=== PATIENT | female | born 1980 | race Caucasian/White ===

== ENCOUNTER 2018-08-31 06:49 | Emergency (ER) | payer MEDICAID, OTHER ==
[~2018-08-31] VITALS: Ht 157.5 cm; Wt 59.0 kg
[2018-08-31 07:33] LABS: Basophils # (auto) 0.1 uL; Basophils % (auto) 1.4 % (0.0-2.0); Eosinophils # (auto) 0.6 uL; Hemoglobin 10.7 g/dL (12.2-16.2); Lymphocytes # (auto) 1.3 uL; Mean Corpuscular Hemoglobin 24.4 pg (28.0-32.0); Monocytes # (auto) 0.6 uL; White Blood Cell 6.2 10^3/uL (4.4-10.8)
[2018-08-31 07:35] LABS: Hematocrit 34.2 % (36.0-46.0); Lymphocytes % (auto) 21.7 % (10.0-50.0); Mean Corpuscular Hgb Conc. 31.3 g/dL (32.0-36.0); Mean Corpuscular Volume 77.8 fL (80.0-100.0); Monocytes % (auto) 10.1 % (0.0-12.0); Neutrophils # (auto) 3.5 uL; Neutrophils % (auto) 56.8 % (37.0-80.0); Nucleated Red Blood Cells % 0.1 %; Platelet Count (auto) 359 10^3/uL (140-450); Red Cell Distribution Width 17.4 % (11.8-14.3)
[2018-08-31 07:46] LABS: Alanine Aminotransferase 58 U/L (13-56); Albumin 3.2 g/dL (3.4-5.0); Anion Gap 6 (5-15); Aspartate Aminotransferase 78 U/L (15-37); BUN/Creatinine Ratio 23.9; Blood Alcohol < 3.0 mg/dL (0-5); Blood Urea Nitrogen 16 mg/dL (7-18); Carbon Dioxide 27 mmol/L (21-32); Chloride 107 mmol/L (98-107); GFR African American 125 mL/min; GFR Non-African American 104 mL/min; Glucose 97 mg/dL (74-106); Potassium 3.9 mmol/L (3.5-5.1); Sodium 140 mmol/L (136-145)
[2018-08-31 07:48] LABS: INR 0.94 (0.9-1.15); Partial Thromboplastin Time 25.9 sec (23.64-32.05); Salicylate < 1.7 mg/dL (2.8-20.0)
[2018-08-31 07:49] LABS: Alkaline Phosphatase 98 U/L (45-117); Bilirubin, Total 0.2 mg/dL (0.2-1.0); Total Protein 7.1 g/dL (6.4-8.2)
[2018-08-31 07:57] LABS: Acetaminophen < 2.0 ug/mL (10-30)
[2018-08-31 09:16] LABS: Alcohol, Urine < 3.0 mg/dL (0-5); Amphetamine Screen, Urine POSITIVE (NEGATIVE); Barbiturate Scree,Urine NEGATIVE (NEGATIVE); Benzodiazephine Screen, Urine NEGATIVE (NEGATIVE); Cannabinoid Screen, Urine NEGATIVE (NEGATIVE); Cocaine Screen, Urine NEGATIVE (NEGATIVE); Opiate Scree,Urine NEGATIVE (NEGATIVE); Phencyclidine Screen, Urine NEGATIVE (NEGATIVE); Urine Bacteria NONE SEEN /hpf (None Seen); Urine Blood Negative /uL (Negative); Urine Hyaline Cast FEW /lpf (0 - 2); Urine Mucus FEW (None Seen); Urine Specific Gravity 1.029 (1.001-1.035); Urine WBC 9 /hpf (0 - 5)
[2018-08-31] MEDS ORDERED: OLANZapine 5 MG TAB PO ONE (17:00)
[2018-09-01] MEDS: OLANZapine 5 MG TAB PO SCH (14:46)
[2018-09-02] MEDS: OLANZapine 5 MG TAB PO SCH (10:09)
[2018-09-02 17:13] VITALS: BP 128/64
== END 2018-09-02 17:24 | disposition short-term general hospital (02) ==
LOC: EDBD 06:49 → ER 06:49
DX: F15.10 Other stimulant abuse, uncomplicated (principal); N93.9 Abnormal uterine and vaginal bleeding, unspecified; R41.0 Disorientation, unspecified; F17.210 Nicotine dependence, cigarettes, uncomplicated; F12.10 Cannabis abuse, uncomplicated; Z59.0 Homelessness
CPT/HCPCS: 36415; 80053; 80307; 80320; 80329; 81001; 84702; 85025; 85610; 85730

== ENCOUNTER 2024-04-01 21:23 | Emergency (ER) | payer OTHER ==
[~2024-04-01] VITALS: Ht 157.5 cm; Wt 68.2 kg
--- NOTE | 2024-04-01 21:43 | ED.PDOC ---
History of Present Illness HPI Comments 33 y/o F is BIBA for c/o alcohol intoxication, today. Per EMS report, patient was found by bystanders outside of a [facility] establishment and reported to have had a seizure, this evening. On scene, patient was noted to have been surrounded by multiple empty alcohol bottles and was arousable but intoxicated to answer any questions. All vitals were commented to have been within normal limits and stable on scene and en route. Further history cannot be obtained at this time, due to patient's current intoxicated state and absence of family/caretakers during initial evaluation. Time Seen by MD: 21:40 Reviewed Notes: Nurses Notes, Field Cane Scaler Helper Notes, Medications, Allergies Allergies: Coded Allergies: UNOBTAINABLE (Unverified , 04/01/24) Information Source: Emergency Med Personnel Mode of Arrival: EMS Severity: Moderate Timing: Hours Duration: Since onset Prehospital treatment: 12 Lead EKG, [employer] [employer] Past Medical History PAST MEDICAL HISTORY: Unknown, Unobtainable Surgical History: Unknown, Unobtainable [employer] History: Unknown, Unobtainable Family History Family History: Unknown Social History Smoker: Unknown, Unobtainable Alcohol: Heavy Drugs: Unknown, Unobtainable Lives In: Unknown, Unobtainable All Other Systems: Reviewed and Negative (negative unless otherwise stated in HPI) Physical Exam General Appearance: No Apparent Distress, Normal, Other (appears intoxicated and unkept) HEENT: Normal ENT Inspection, Pharynx Normal, TMs Normal Neck: Full Range of Motion, Non-Tender, Normal, Normal Inspection Respiratory: Chest Non-Tender, Lungs Clear, No Accessory Muscle Use, No Respiratory Distress, Normal Breath Sounds Cardiovascular: No Edema, No JVD, No Murmur, No Gallop, Normal Peripheral Pulses, Regular Rate/Rhythm Breast Exam: Deferred Gastrointestinal: No Organomegaly, Non Tender, No Pulsatile Mass, Normal Bowel Sounds, Soft Genitalia: Deferred Pelvic: Deferred Rectal: Deferred Extremities: No calf tenderness, Normal capillary refill, Normal inspection, Normal range of motion, Non-tender, No pedal edema Musculoskeletal : Apperance: Normal Neurologic: Alert, fringe maker II-XII nml as Tested, No Motor Deficits, Normal Affect, Normal Mood, No Sensory Deficits Cerebellar Function: Normal Reflexes: Normal Skin: Dry, Normal Color, Warm Lymphatic: No Adenopathy Was a procedure done? Was a procedure done?: No Differential Dx Considerations may include: alcohol intoxication, substance abuse, encephalopathy, electrolyte imbalance X-Ray, Labs, Meds, VS Vital Signs Date Time Temp Pulse Resp B/P (MAP) Pulse Ox O2 Delivery O2 Flow Rate FiO2 04/01/24 21:45 101 15 133/73 (93) 98 Lab Test 04/01/24 21:53 Range/Units White Blood Count 10.5 4.4-10.8 10^3/uL Red Blood Count 4.12 4.0-5.20 10^6/uL Hemoglobin 12.1 L 12.2-16.2 g/dL Hematocrit 36.9 36.0-46.0 % Mean Corpuscular Volume 89.7 80.0-100.0 fL Mean Corpuscular Hemoglobin 29.3 28.0-32.0 pg Mean Corpuscular Hemoglobin Concent 32.7 32.0-36.0 g/dL Red Cell Distribution Width 15.3 H 11.8-14.3 % Platelet Count 249 140-450 10^3/uL Mean Platelet Volume 7.4 6.9-10.8 fL Neutrophils (%) (Auto) 58.0 37.0-80.0 % Lymphocytes (%) (Auto) 30.7 10.0-50.0 % Monocytes (%) (Auto) 9.7 0.0-12.0 % Eosinophils (%) (Auto) 1.2 0.0-7.0 % Basophils (%) (Auto) 0.4 0.0-2.0 % Neutrophils # (Auto) 6.1 1.6-8.6 10 ^3/uL Lymphocytes # (Auto) 3.2 0.4-5.4 10 ^3/uL Monocytes # (Auto) 1.0 0-1.3 10 ^3/uL Eosinophils # (Auto) 0.1 0-0.8 10 ^3/uL Basophils # (Auto) 0 0-0.2 10 ^3/uL Nucleated Red Blood Cells 0.0 % Sodium Level 144 136-145 mmol/L Potassium Level 3.3 L 3.5-5.1 mmol/L Chloride Level 106 98-107 mmol/L Carbon Dioxide Level 25 20-31 mmol/L Anion Gap 13 5-15 Blood Urea Nitrogen 7 L 9-23 mg/dL Creatinine 0.51 L 0.550-1.02 mg/dL Glomerular Filtration Rate Calc 117 >90 mL/min BUN/Creatinine Ratio 13.7 10.0-20.0 Serum Glucose 87 74-106 mg/dL Calcium Level 9.1 8.7-10.4 mg/dL Total Bilirubin 0.2 0.2-1.0 mg/dL Aspartate Amino Transferase (AST) 47 H 13-40 U/L Alanine Aminotransferase (ALT) 19 7-40 U/L Alkaline Phosphatase 140 H 46-116 U/L Total Protein 7.7 5.7-8.2 g/dL Albumin 4.4 3.2-4.8 g/dL Plasma/Serum Blood Alcohol 559.8 *H <10 mg/dL Time of 1ST Reevaluation: 22:10 Reevaluation 1ST: Unchanged Time of 2ND Reevaluation: 06:02 Reevaluation 2ND: Improved Patient Education/Counseling: Diagnosis, Treatment, Other (patient is intoxicated ) Family Education/Counseling: No Family Present Departure 1 Departure Time of Disposition: 06:01 Impression: Primary Impression: Alcohol intoxication Additional Impression: Alcoholism Disposition: 01 HOME / SELF CARE / HOMELESS Condition: Stable Discharged With: Self Comments Now improving, ambulatory with steady gait, GCS 15 Critical Care Note Critical Care Time?: No Stability Stability form required: No Heart Score Heart Score: Heart Score Response (Comments) Value History N/A 0 EKG N/A 0 Age N/A 0 Risk Factors N/A 0 Troponin N/A 0 Total 0 I personally scribed for DOT DIAZ MD ([email or web address]) on 04/01/24 at 21:43. Electronically submitted by Zurdo Hawkins ([email or web address]). I personally scribed for DOT DIAZ MD ([email or web address]) on 04/01/24 at 21:45. Electronically submitted by Zurdo Hawkins ([email or web address]). DOT DIAZ MD Apr 01, 2024 21:43
[2024-04-01 21:45] VITALS: BP 133/73; PULSE 101; RESP 15; O2SAT 98
[2024-04-01 22:13] LABS: Basophils # (auto) 0 10 ^3/uL (0-0.2); Basophils % (auto) 0.4 % (0.0-2.0); Eosinophils # (auto) 0.1 10 ^3/uL (0-0.8); Eosinophils % (auto) 1.2 % (0.0-7.0); Hematocrit 36.9 % (36.0-46.0); Hemoglobin 12.1 g/dL (12.2-16.2); Lymphocytes # (auto) 3.2 10 ^3/uL (0.4-5.4); Lymphocytes % (auto) 30.7 % (10.0-50.0); Mean Corpuscular Hemoglobin 29.3 pg (28.0-32.0); Mean Corpuscular Hgb Conc. 32.7 g/dL (32.0-36.0); Mean Corpuscular Volume 89.7 fL (80.0-100.0); Monocytes % (auto) 9.7 % (0.0-12.0); Neutrophils # (auto) 6.1 10 ^3/uL (1.6-8.6); Platelet Count (auto) 249 10^3/uL (140-450); Red Blood Cells 4.12 10^6/uL (4.0-5.20); Red Cell Distribution Width 15.3 % (11.8-14.3); White Blood Cell 10.5 10^3/uL (4.4-10.8)
[2024-04-01 22:32] LABS: Alanine Aminotransferase 19 U/L (7-40); Albumin 4.4 g/dL (3.2-4.8); Anion Gap 13 (5-15); BUN/Creatinine Ratio 13.7 (10.0-20.0); Calcium 9.1 mg/dL (8.7-10.4); Carbon Dioxide 25 mmol/L (20-31); Chloride 106 mmol/L (98-107); Glucose 87 mg/dL (74-106); Sodium 144 mmol/L (136-145)
[2024-04-01 22:33] LABS: Total Protein 7.7 g/dL (5.7-8.2)
[2024-04-01 22:49] LABS: Alkaline Phosphatase 140 U/L (46-116); Aspartate Aminotransferase 47 U/L (13-40); Bilirubin, Total 0.2 mg/dL (0.2-1.0); Blood Urea Nitrogen 7 mg/dL (9-23); Potassium 3.3 mmol/L (3.5-5.1)
[2024-04-01 22:50] LABS: Blood Alcohol 559.8 mg/dL (<10)
[2024-04-02] MEDS: POTASSIUM CHL 20 Meq TABLET PO ONE (00:37)
== END 2024-04-02 07:35 | disposition home or self-care (01) ==
LOC: MERGE 21:23 → EDBD 21:23 → ER 21:23
DX: F10.229 Alcohol dependence with intoxication, unspecified (principal); Y90.9 Presence of alcohol in blood, level not specified
CPT/HCPCS: 36415; 80053; 80320; 85025